=== PATIENT | male | born 1985 | race Caucasian/White ===

== ENCOUNTER 2019-05-21 23:12 | Emergency (ER) | payer SELFPAY, OTHER ==
[2019-05-22] MEDS: HYDROCODONE/APAP (10/325) TAB PO (01:50)
[2019-05-22] MEDS: ONDANSETRON (ODT) 4 MG TAB ODT (01:50)
== END 2019-05-22 05:15 | disposition home or self-care (01) ==
LOC: FTE 23:12
DX: S20.219A Contusion of unspecified front wall of thorax, initial encounter (principal); S80.01XA Contusion of right knee, initial encounter; M62.838 Other muscle spasm; V43.62XA Car passenger injured in collision with other type car in traffic accident, initial encounter
CPT/HCPCS: 71046; 72040; 73562; 99284-25